=== PATIENT | female | born 1995 | race Caucasian/White ===

== ENCOUNTER 2016-08-22 17:20 | Emergency (ER) | payer BC ==
[2016-08-22] MEDS ORDERED: KETOROLAC 60 MG/2 ML VIAL IM ONE (19:17)
[2016-08-22] MEDS ORDERED: ORPHENADRINE 60 MG/2 ML AMP ONE (19:17)
[2016-08-22] MEDS ORDERED: Ibuprofen 600 MG TAB ONE (19:57)
[2016-08-22] MEDS ORDERED: CYCLOBENZAPRINE 10 MG TAB ONE (19:57)
== END 2016-08-22 21:11 | disposition home or self-care (01) ==
LOC: ER 17:20
DX: S09.90XA Unspecified injury of head, initial encounter (principal); W19.XXXA Unspecified fall, initial encounter; Y93.23 Activity, snow (alpine) (downhill) skiing, snowboarding, sledding, tobogganing and snow tubing; Y92.328 Other athletic field as the place of occurrence of the external cause; S16.1XXA Strain of muscle, fascia and tendon at neck level, initial encounter
CPT/HCPCS: 70450; 72125